=== PATIENT | male | born 1945 | race Caucasian/White ===

== ENCOUNTER 2018-07-12 00:53 | Inpatient (IN) | payer MEDICARE, OTHER ==
[~2018-07-12] VITALS: Ht 167.6 cm; Wt 108.4 kg
[~2018-07-12 00:53] MED LIST: HYDROCODONE-AP1 EAC6 PO; IBUPROFEN 800800 M1 PO; PRED FORTE 1% EY5 M1 OPHTHALMIC; PRINIVIL20 MG PO
[2018-07-12 00:56] VITALS: BP 177/87
[2018-07-12] MEDS ORDERED: VITAMIN B-12500 MCG PO (01:06)
[2018-07-12] MEDS ORDERED: VITAMINC500 PO (01:06)
[2018-07-12 01:25] LABS: HEMOGLOBIN 15.7 gm/dL (14.0-18.0); MCH 29.9 pg (26.0-34.0); MCHC 34.2 g/dL (28.0-37.0); MCV 87.4 fL (80.0-100.0); MPV 8.3 fl. (7.2-11.1); NUCLEATED RBCS 0 /100WBC; PLATELET COUNT* 78 thou/uL (150-400); RBC 5.27 mil/uL (4.50-6.00); RDW-CV 15.2 % (10.5-14.5); WBC 7.8 thou/uL (4.0-11.0)
[2018-07-12 01:33] LABS: PROTIME 10.2 Seconds (9.20-11.50)
[2018-07-12 01:41] LABS: ALBUMIN 3.9 g/dL (3.4-5.0); ALKALINE PHOSPHATASE 58 U/L (46-116); ANION GAP 11 mmol/L (7-16); BUN 20 mg/dL (7-18); CALCIUM 9.6 mg/dL (8.5-10.1); CHLORIDE 106 mmol/L (98-107); CO2 30 mmol/L (21-32); CREATININE 1.1 mg/dL (0.6-1.3); GLUCOSE 108 mg/dL (70-99); POTASSIUM 3.5 mmol/L (3.5-5.1); SGOT 16 U/L (15-37); SGPT 30 U/L (30-65); SODIUM 147 mmol/L (136-145); TOTAL BILIRUBIN 0.3 mg/dL (<0.1-1.0); TOTAL PROTEIN 6.7 g/dL (6.4-8.2); TROPONIN-I LEVEL <0.06 ng/mL (<0.06)
[2018-07-12 02:44] LABS: ABSOLUTE BASOPHILS 0.1 thou/uL (0.0-0.2); ABSOLUTE EOSINOPHILS 0.2 thou/uL (0.0-0.7); ABSOLUTE MONOCYTES 1.3 thou/uL (0.0-1.2); ABSOLUTE NEUTROPHILS 4.1 thou/uL (1.6-8.1)
[2018-07-12 02:45] LABS: ANISOCYTOSIS Occasional; PLATELET ESTIMATE DECREASED
[2018-07-12 03:02] VITALS: BP 162/99
[2018-07-12 03:25] VITALS: BP 172/85
[2018-07-12 07:38] LABS: CHOLESTEROL 144 mg/dL (<200); HDL CHOLESTEROL 53 mg/dL (>40); LDL CHOLESTEROL 74 mg/dL (<100); TC:HDL 2.7 Ratio (Not establshd); TRIGLYCERIDE 86 mg/dL (<150); VLDL 17 mg/dL (<40)
[2018-07-12 07:50] LABS: SERUM ASSESSMENT Clear
[2018-07-12 09:00] VITALS: BP 170/96
[2018-07-12 10:04] LABS: ALBUMIN 3.8 g/dL (3.4-5.0); CALCIUM 8.8 mg/dL (8.5-10.1); POTASSIUM 3.3 mmol/L (3.5-5.1); TOTAL BILIRUBIN 0.6 mg/dL (<0.1-1.0); TOTAL PROTEIN 6.7 g/dL (6.4-8.2)
[2018-07-12] MEDS ORDERED: CARDIZEM CD120 MG PO (11:08)
[2018-07-12] MEDS ORDERED: PREDNISONE 5 MG5 M1 PO (11:08)
[2018-07-12 11:59] VITALS: BP 169/95
--- NOTE | 2018-07-12 13:11 | EKG ---
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 : 1945 Requested By: Kenney Cleaning Order Number: [id number] MD: Sam Bowers Measurements Intervals Bronson Rate: 73 P: 71 TN: 184 QRS: -15 QRSD: 153 T: 18 QT: 416 QTc: 459 Interpretive Statements Sinus arrhythmia Ventricular premature complex Right bundle branch block No previous ECG available for comparison Electronically Signed On 07-12-2018 13:11:32 CDT by Sam Bowers [email or web address] <ELECTRONICALLY SIGNED> By: Sam Bowers MD, [facility] 07/12/18 1311 D: [id number] Sam Bowers MD, FACC /EPI
--- NOTE | 2018-07-12 13:22 | NUR ---
Pt was out of room when CM went to assess, will f/u later
--- NOTE | 2018-07-12 16:56 | NUR ---
ASSUMED PT CARE AT 0700 PT IS ALERT AND ORIENTED X 4 PT IS FORGETFUL HAS SLOW SPEECH, PT DENIES PAIN OR SOA ON RA, PT IS UP WITH SBA PT IS IN CHAIR PT IS A FALL RISK BED AND CHAIR ALARMS ARE ON, PT IS SR BBB ON THE MONIONTIOR, WILL CONTINUE TO MONITOR
[2018-07-12 19:57] VITALS: BP 152/86
[2018-07-13] VITALS: BP 144/81
[2018-07-13 02:09] LABS: GLYCOHEMOGLOBIN (HGB A1C) 5.8 % (4.8-5.6)
[2018-07-13 04:00] VITALS: BP 151/86
[2018-07-13 05:05] LABS: ABSOLUTE EOSINOPHILS 0.1 thou/uL (0.0-0.7); ABSOLUTE LYMPHOCYTES 1.1 thou/uL (0.8-5.3); ABSOLUTE MONOCYTES 1.4 thou/uL (0.0-1.2); ABSOLUTE NEUTROPHILS 2.7 thou/uL (1.6-8.1); BASOPHILS 0.7 %; EOSINOPHILS 1.9 %; HEMATOCRIT 46.6 % (42.0-52.0); HEMOGLOBIN 15.7 gm/dL (14.0-18.0); MCH 29.3 pg (26.0-34.0); MCHC 33.6 g/dL (28.0-37.0); MCV 87.1 fL (80.0-100.0); MONOCYTES 26.7 %; MPV 8.5 fl. (7.2-11.1); NUCLEATED RBCS 0 /100WBC; PLATELET COUNT* 80 thou/uL (150-400); POLYS 50.7 %; RBC 5.35 mil/uL (4.50-6.00); RDW-CV 15.1 % (10.5-14.5); WBC 5.3 thou/uL (4.0-11.0)
[2018-07-13 05:30] LABS: CALCIUM 8.9 mg/dL (8.5-10.1); CREATININE 1.1 mg/dL (0.6-1.3); POTASSIUM 3.3 mmol/L (3.5-5.1)
--- NOTE | 2018-07-13 07:53 | NUR ---
PT IS ABLE TO COMMUNICATE HIS NEEDS TO STAFF EFFECTIVELY. HE HAS DENIED THE NEED FOR PAIN MEDICATION UP TO THIS TIME. FULL NIH Q-SHIFT MAINTAINED. POSSIBLE DISCHARGE IN THE NEXT DAY OR TWO.
[2018-07-13 08:00] VITALS: BP 143/86
--- NOTE | 2018-07-13 08:00 | NUR ---
ASSUMED PT CARE AT 0700, A&O X4, NIH CHARTED, UP AD SAY. 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 PT AND FAMILY EDUCATED ON CT AND MRI RESULTS WELL NEED FOR ASA, PT STATES UNDERSTANDING. DR COSTELLO, PTS BOILER ENGINEER TO SPEAK TO PT AND FAMILY. WILL CONT POC.
--- NOTE | 2018-07-13 09:10 | CON ---
[address] [address] CONSULTATION Name: MATTHEW ACOSTA Room: [address] IN M.R.#: [id number] Admission: 07/12/18 Attend Phys: Joselyn Cornejo Discharge: Date of : 49 Report #: [id number] THIS REPORT FOR: //name// CC: Nalini Pereira DATE OF SERVICE: 07/12/2018 PRIMARY FOUNTAIN SUPERVISOR: Dr. Leighann Mendes. REASON FOR CONSULTATION: ITP. SUBJECTIVE: A 73-year-old male who is a known patient for Dr. Mendes at [facility] who has been diagnosed with ITP. The patient currently is on prednisone at a dose of 5 mg p.o. daily. In addition, previously he received the rituximab for the treatment of his platelet count. The patient was admitted because of left-sided weakness with slurred speech, lasted for few minutes. Ambulance has been called. The patient at the Emergency Room today had a CT scan, which showed no acute intracranial abnormalities, that was followed by MRI of the brain, which showed no MRI evidence of acute intracranial abnormalities. The patient at this point denies any active symptoms of bleeding like epistaxis, gum bleed, hematuria, or bright blood per stool. His platelet count today was 78. In addition to that, he is on 5 mg of prednisone, his platelet count is at baseline around 100,000. REVIEW OF SYSTEMS: All systems reviewed. It was negative except the above. PAST MEDICAL HISTORY: ITP, hypertension. PAST SURGICAL HISTORY: Status post splenectomy, knee arthroscopy. SOCIAL HISTORY: No smoking, no alcohol abuse, no drug abuse. ALLERGIES: No known allergies. MEDICATIONS: Per admission list. PHYSICAL EXAMINATION: VITAL SIGNS TODAY: Temperature 36.8, pulse is 73, respirations 18, blood pressure is 116/95, SpO2 was 93% on room air. GENERAL: The patient was sitting in chair. He was not in acute distress. LUNGS: Clear to auscultations bilaterally. HEART: Regular rate and rhythm. S1, S2 within normal limits. ABDOMEN: Soft, nontender, nondistended. Bowel sounds positive. EXTREMITIES: No edema, no cyanosis, [place] [address] CONSULTATION Name: MATTHEW ACOSTA Room: [address] IN [facility]#: [id number] Admission: 07/12/18 Attend Phys: Joselyn Cornejo Discharge: Date of : 49 Report #: [id number] LABORATORY DATA: Today, WBC 7.8, hemoglobin 15.7, platelets 78. PT is 10.0. Sodium is 143, creatinine 1.0, calcium is 8.8, total bilirubin 0.6, ____, ALT is 32, alkaline phosphatase 53. IMAGING: As mentioned above. ASSESSMENT: A 73-year-old male was evaluated because of transient ischemic attack. His symptoms resolved. MRI was negative for acute infarct. His platelet count today is 78. RECOMMENDATIONS: I discussed with the patient today and his family who was present at the bedside today that the risks of bleeding is less than the benefit of prevention of further TIA. I recommended to start baby aspirin 81 mg p.o. daily as long as the platelet count will be monitored. However, the patient and his family were very reluctant to agree this recommendation. At this point, I would like to continue his home dose of prednisone 5 mg p.o. daily. Family requested Dr. Mendes to see the patient in a.m. Workup for stroke is still in progress. <ELECTRONICALLY SIGNED> By: Erick Wong MD 07/13/18 0910 [id number] Wong MD /nt
--- NOTE | 2018-07-13 13:18 | NUR ---
Pt is A&O. Resides at home with his . Active and independent. No DME. NO hx of HH or SNF. Goal is home at dc. Anticipate that Pt will be ready to dc tomorrow.
[2018-07-13 13:41] VITALS: BP 161/87
[2018-07-13 16:27] VITALS: BP 158/72
--- NOTE | 2018-07-13 19:34 | NUR ---
PT AND EDUCATED ON [place] FOR OBSERVATION STAY, REQUESTING TO STAY ADDITIONAL NIGHT FOR FULL 48 HOUR STAY. VSS, REMAINS ON RA, UP AD SAY. HOURLY ROUNDING COMPLETED.
[2018-07-13 20:15] VITALS: BP 136/77
[2018-07-14] VITALS: BP 149/78
[2018-07-14 04:00] VITALS: BP 163/84
--- NOTE | 2018-07-14 07:58 | NUR ---
RECEIVED REPORT AND ASSUMED CARE AT 1900. VSS. CARDIAC MONITORING IN PLACE. PT DENIES COMPLIANTS OF PAIN. ASSESSMENT COMPLETED CHARTED. PT UP AD SAY IN ROOM, ON RA, HOURLY ROUNDING COMPLETED AND ALL NEEDS MET.
[2018-07-14 08:00] VITALS: BP 144/83
--- NOTE | 2018-07-14 08:00 | NUR ---
ASSUMED PT CARE AT 0700, PT SITTING UP IN BED, CALL LIGHT IN REACH, UP AD SAY. VSS, RA, WEIGHT CALLER TRACING SINUS RHYTHM, PT TO HAVE ECHO THIS AM. PER PT AND , PT REMOVED RINGS PRIOR TO SHOWER LAST NIGHT AND NOT ABLE TO FIND. INCIDENT REPORTED TO HOSPITAL SECURITY. PT TO POSSIBLY DC HOME TODAY, WILL CONT POC.
[2018-07-14 10:12] LABS: HEMATOCRIT 49.1 % (42.0-52.0); HEMOGLOBIN 16.8 gm/dL (14.0-18.0); MCH 29.8 pg (26.0-34.0); MCHC 34.2 g/dL (28.0-37.0); MPV 8.5 fl. (7.2-11.1); NUCLEATED RBCS 0 /100WBC; PLATELET COUNT* 84 thou/uL (150-400); RBC 5.64 mil/uL (4.50-6.00); RDW-CV 15.4 % (10.5-14.5); WBC 7.1 thou/uL (4.0-11.0)
[2018-07-14 10:20] LABS: ABSOLUTE EOSINOPHILS 0.1 thou/uL (0.0-0.7); ABSOLUTE LYMPHOCYTES 1.2 thou/uL (0.8-5.3); ABSOLUTE MONOCYTES 1.7 thou/uL (0.0-1.2); BASOPHILS 0.4 %; EOSINOPHILS 1.4 %; LYMPHOCYTES 17.3 %; MONOCYTES 24.2 %; POLYS 56.7 %
[2018-07-14 12:09] VITALS: BP 153/84
[2018-07-14] MEDS ORDERED: ASPIR 8181 MG PO (12:12)
[2018-07-14] MEDS ORDERED: LIPITOR10 MG PO ×2 (12:24→12:44)
[2018-07-14 12:55] VITALS: BP 153/84
--- NOTE | 2018-07-14 13:55 | 2DMMODE ---
[place] [address] 2 D/M-MODE ECHOCARDIOGRAM Name: MATTHEW ACOSTA Room: [facility] IN [facility]#: [id number] Admission: 07/12/18 Attend Phys: Janet Pereira Discharge: Date of : 49 Date of Service: 07/14/18 1355 Report #: [id number] THIS REPORT FOR: //name// APPROVED REPORT Study performed: 07/14/2018 10:42:46 EXAM: Comprehensive 2D, Doppler, and color-flow Echocardiogram Patient Location: In-Patient Room #: [facility] Status: routine BSA: 2.19 HR: 64 bpm BP: 144/83 mmHg Rhythm: NSR Other Information Study Quality: Good Indications CVA/TIA Echo Enhancing Agent Indication: Rule out Shunt Agent(s) / Amount(s) Used: Agitated Saline 10 cc 2D Dimensions IVSd: 13.30 (7-11mm) LVOT Diam: 23.39 (18-24mm) LVDd: 53.44 mm PWd: 13.62 (7-11mm) Ascending Ao: 35.25 (22-36mm) LVDs: 33.74 (25-40mm) Aortic Root: 39.96 mm Volumes Left Atrial Volume (Systole) LA ESV Index: 25.90 mL/m2 Aortic Valve AoV Peak Shiva.: 1.29 m/s AO Peak Gr.: 6.67 mmHg LVOT Max P.67 mmHg AO Mean Gr.: 3.92 mmHg LVOT Mean P.35 mmHg LVOT Max V: 0.82 m/s AO V2 VTI: 23.83 cm LVOT Mean V: 0.54 m/s SHANA (VTI): 3.82 cm2 LVOT V1 VTI: 21.18 [place] [address] 2 D/M-MODE ECHOCARDIOGRAM Name: MATTHEW ACOSTA Room: [address] IN ..#: [id number] Admission: 07/12/18 Attend Phys: Janet Pereira Discharge: Date of : 49 Date of Service: 07/14/18 1355 Report #: [id number] Mitral Valve E/A Ratio: 0.65 MV Decel. Time: 403.40 ms MV E Max Shiva.: 0.59 m/s MV PHT: 116.99 ms MVA (PHT): 1.88 cm2 TDI E/Lateral E': 9.83 E/Medial E': 9.83 Medial E' Shiva.: 0.06 m/s Lateral E' Shiva.: 0.06 m/s Pulmonary Valve PV Peak Shiva.: 0.97 m/s PV Peak Gr.: 3.73 mmHg Left Ventricle The left ventricle is normal size. There is normal LV segmental wall motion. Mild concentric left ventricular hypertrophy. Left ventricular systolic function is normal. The left ventricular ejection fraction is within the normal range. LVEF is 55-60%. Grade I - abnormal relaxation pattern. Right Ventricle The right ventricle is normal size. The right ventricular systolic function is normal. Atria The left atrium size is normal. Interatrial septum is intact without evidence of ASD or PFO. The right atrium size is normal. Aortic Valve Mild aortic valve sclerosis. Trace aortic regurgitation. There is no aortic valvular stenosis. Mitral Valve There is mitral annular calcification. Trace mitral regurgitation. No evidence of mitral valve stenosis. Tricuspid Valve The tricuspid valve is normal in structure. Unable to assess PA pressure. Trace tricuspid regurgitation. Pulmonic Valve Pulmonic valve is not well visualized. There is no pulmonic [place] [address] 2 D/M-MODE ECHOCARDIOGRAM Name: MATTHEW ACOSTA Room: [address]#: [id number] Admission: 07/12/18 Attend Phys: Janet Pereira Discharge: Date of : 49 Date of Service: 07/14/18 1355 Report #: [id number] Great Vessels The aortic root is normal in size. IVC is normal in size and collapses >50% with inspiration. Pericardium There is no pericardial effusion. <Conclusion> Mild concentric left ventricular hypertrophy. LVEF is 55-60%. Mild aortic valve sclerosis. <ELECTRONICALLY SIGNED> By: Sam Bowers MD, FACC 07/14/18 1355 1355 1355 Sam Bowers MD, FACC /INF
--- NOTE | 2018-07-14 14:09 | NUR ---
PT DISCHARGED, LEFT UNIT AT APPROX 1350 VIA WC WITH AND NURSING STAFF. EDUCATED ON ALL DISCHARGE INSTRUCTIONS INCLUDING FOLLOW UP APPTS AND MEDICATIONS. PT DID FIND RINGS THAT WERE BELIEVED TO BE MISSING. IV AND MANAGER LANGUAGE REMOVED. HOURLY ROUNDING COMPLETED.
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
== END 2018-07-14 13:50 | disposition home or self-care (01) | DRG 69 ==
LOC: M.ERS 00:53 → M.TBA-ER 02:00 → M.2W 02:00
PROVIDERS: Emergency Medicine Emergency Medical Services; Internal Medicine; ADMIT Internal Medicine
DX: G45.9 Transient cerebral ischemic attack, unspecified (principal); I48.91 Unspecified atrial fibrillation; D69.6 Thrombocytopenia, unspecified; Z79.1 Long term (current) use of non-steroidal anti-inflammatories (NSAID); Z90.81 Acquired absence of spleen; Z82.49 Family history of ischemic heart disease and other diseases of the circulatory system; I10 Essential (primary) hypertension